=== PATIENT | male | born 1960 | race Caucasian/White ===

== ENCOUNTER 2018-05-12 18:55 | Emergency (ER) | payer MEDICAID, SELFPAY ==
[2018-05-12] VITALS (9 sets, daily range): BP systolic 109–140; BP diastolic 82–99; PULSE 89–99; RESP 18–32; TEMP 37; O2SAT 96–99
--- NOTE | 2018-05-12 19:19 | ED.CHESTPAIN ---
HPI - Chest Pain General Chief Complaint: Chest Pain Stated Complaint: Chest Pain Time Seen by Provider: 05/12/18 19:00 Source: patient and EMS Mode of arrival: EMS Limitations: no limitations History of Present Illness HPI narrative: Patient states he began to have pain across his entire chest yesterday, and the pain has persisted through the day today. Patient was given some nitroglycerin EN route, which he states improved the pain very minorly, but the pain is back to where it was before. Patient states he has had no shortness of breath, nausea, vomiting, or cough. No fever or chills. Patient is currently being treated for metastatic melanoma with brain metastases. He states he is no longer on chemotherapy or radiation, but is on Keppra and dexamethasone. Patient does note that he has had pulmonary emboli in the past associated with his cancer. He states he is not sure if this feels the same or not. Patient states he has no history of cardiac issues, the and no history of diabetes, hypertension, or hyperlipidemia. MD complaint: chest pain Onset (ago): day(s) ( One) Duration: constant ( waxes and wanes) Onset: during rest Pain location: other ( entire chest) Quality: aching Pain radiation: none Relieving factors: nothing Exacerbating factors: nothing Context: history of DVT/PE and other ( no recent illness or new medications. No trauma or injury.) Associated symptoms: other ( No leg swelling. No palpitations.) Treatments prior to arrival chest pain: nitroglycerin Related Data Allergies Allergy/AdvReac Type Severity Reaction Status Date / Time chlorhexidine Allergy Verified 05/12/18 20:35 Review of Systems Review of Systems All systems reviewed & are unremarkable except as noted in HPI and below Constitutional Denies chills, Denies fever(s), Denies lethargy and Denies weakness Eyes Denies change in vision, Denies eye discharge, Denies irritation and Denies loss of vision ENT Ears, Nose, Mouth, and Throat: Denies change in voice, Denies neck pain and Denies sore throat Cardiovascular Reports chest pain, Denies irregular heart rhythm, Denies lightheadedness, Denies palpitations, Denies dyspnea, Denies dyspnea on exertion and Denies orthopnea Respiratory Denies cough, Denies dyspnea, Denies dyspnea on exertion and Denies wheezing Gastrointestinal Gastrointestinal: Denies abdominal pain, Denies change in bowel habits, Denies diarrhea, Denies nausea and Denies vomiting Genitourinary Denies hematuria, Denies flank pain, Denies urinary incontinence and Denies urinary urgency Musculoskeletal Denies neck pain Integumentary/Breasts Denies pruritus, Denies erythema, Denies rash and Denies wounds Neurologic Denies confusion, Denies loss of vision and Denies weakness Psychiatric Denies anxiety, Denies confusion, Denies depression, Denies homicidal ideation and Denies suicidal ideation Endocrine Denies palpitations Hematologic/Lymphatic Denies easy bruising Allergic/Immunologic Denies wheezing [facility] Social History Smoking Status: Never smoker Exam Initial Vital Signs Initial Vital Signs: Vital Signs Temperature 98.6 F 05/12/18 19:05 Pulse Rate 92 H 05/12/18 19:05 Respiratory Rate 32 H 05/12/18 19:05 Blood Pressure 122/86 05/12/18 19:05 Pulse Oximetry 99 05/12/18 19:05 Const General: cooperative and well developed Nutritional Appearance: well nourished Orientation: alert, awake, oriented x3 and not confused [facility] Head: normocephalic and atraumatic Ears: external ears normal Nose: external nose normal and No nasal discharge Face and sinus: face symmetric and No dry mucous membranes Mouth: oral mucosae normal and moist mucous membranes Eyes General: appearance normal, both eyes and all related structures Eyelids: eyelids normal Conjunctivae: conjunctivae normal Sclera: sclerae normal Pupils: PERRL EOM: EOM intact bilaterally Neck Neck: normal visual inspection, trachea midline, No lymphadenopathy, No midline deformity and No JVD Lymphatic: No lymphedema Chest Chest: normal inspection of the chest Resp Effort & Inspection: normal respiratory effort, able to speak in complete sentences, no respiratory distress and no use of accessory muscles Auscultation: clear to auscultation bilaterally, no rales, no rhonchi and no wheezes Cardio Rate: regular rate Rhythm: regular rhythm Heart Sounds: no click, no gallops, no murmurs and no rubs Pulses: normal peripheral pulses GI Inspection: non-distended Palpation: soft, no hepatosplenomegaly, No guarding, No pulsatile mass and No tender Auscultation: normal bowel sounds Back/Spine/Pelvis Back: No CVA tenderness Cervical Spine: cervical ROM normal and No pain with cervical ROM Thoracic/Lumbar Spine: thoracic and lumbar spine normal to inspection Skin General: no rashes or lesions noted, No jaundice and No petechiae Neuro General: alert, oriented x3, gait normal and no focal motor deficits Speech: speech normal Extrem General: full ROM, no clubbing, cyanosis or edema, no pedal edema and no calf tenderness Psych Appearance: well kempt Mental Status: mental status grossly normal Attitude: cooperative Thought Content: normal and suicidality Judgment: judgment good Course Hospital Course: Patient felt much better after symptomatic treatment. Extensive workup, including labs, EKG, chest x-ray, and CTA of the chest were all unremarkable. I did speak with the patient and the family regarding this, and I felt patient was stable for discharge home. Patient and family were in agreement with this plan. We have discussed a plan for home care, as well as the usual indications for return. Patient and family expressed understanding. Orders Ordered: Discontinued Medications Aspirin (Aspirin) 325 mg PO NOW ONE Stop: 05/12/18 19:25 Last Admin: 05/12/18 19:36 Dose: 325 mg Hydromorphone HCl (Dilaudid) 2 mg IV NOW ONE Stop: 05/12/18 20:34 Last Admin: 05/12/18 20:42 Dose: 2 mg Sodium Chloride (Normal Saline 0.9%) 1,000 mls @ 1,000 mls/hr IV BOLUS ONE Stop: 05/12/18 20:17 Last Infusion: 05/13/18 05:34 Dose: 0 mls/hr Admin: 05/12/18 19:27 Dose: 1,000 mls/hr MDM - Chest Pain Medical Records Data Attestation: I reviewed the patient's medical records. Lab Data Attestation: I reviewed the patient's lab results. Result diagrams: 05/12/18 19:24 05/12/18 19:24 Lab Results 05/12/18 05/12/18 05/12/18 Range/Units 19:24 19:24 19:24 WBC 8.1 (4.5-11.0) X10^3/uL RBC 4.33 L (4.5-5.9) X10^6/uL Hgb 13.0 L (13.5-17.5) g/dL Hct 37.9 L (41-53) % MCV 87.5 (80-100) fL MCH 30.0 (26-34) PG MCHC 34.3 (30-36) % RDW 17.2 H (11.6-14.8) % Plt Count 309 (150-400) X10^3/uL Neut % (Auto) 65.8 (50-75) % Lymph % (Auto) 25.5 (25-40) % [place] % (Auto) 7.4 (3-14) % Eos % (Auto) 0.8 L (2-4) % Baso % (Auto) 0.5 (0-2) % Neut # (Auto) 5400 (1541-4196) /uL D-Dimer 780 H (<230) ng/mL Sodium 142 (137-145) mmol/L Potassium 3.9 (3.4-5.1) mmol/L Chloride 106 (98-107) mmol/L Carbon Dioxide 24 (22-32) mmol/L BUN 8 L (9-20) mg/dL Creatinine 1.00 (0.66-1.25) mg/dL Estimated GFR > 60.0 (>60) mL/min BUN/Creatinine Ratio 8.0 (6-22) Glucose 97 (70-100) mg/dL Calcium 9.9 (8.4-10.2) mg/dL Total Bilirubin 0.7 (0.2-1.3) mg/dL AST 34 (17-59) IU/L ALT 73 H (21-72) IU/L Alkaline Phosphatase 68 (38-126) U/L Total Creatine Kinase 20 L (55-170) U/L CK-MB (CK-2) TNP Troponin I < 0.012 (0.01-0.034) ng/mL Total Protein 7.3 (6.3-8.2) g/dL Albumin 4.1 (3.5-5.0) g/dL Globulin 3.2 (1.7-4.1) g/dL Albumin/Globulin Ratio 1.3 (1.0-2.8) Imaging Data Chest x-ray: Attestation: I personally reviewed and interpreted this imaging study as follows: My impression: Negative Radiologist's impression: PROCEDURE: XR CHEST 1V INDICATIONS: chest pain TECHNIQUE: One view of the chest was acquired. COMPARISON: [facility], CHEST 2 VIEW, 02/16/2010, 9:36. FINDINGS: Surgical changes and devices: None. Lungs and pleura: Right basilar opacity may be pneumonia or atelectasis. No pleural effusions or pneumothorax. Mediastinum: Mediastinal contours appear normal. Heart size is normal. Bones and chest wall: No suspicious bony lesions. Overlying soft tissues appear unremarkable. IMPRESSION: Right basilar pneumonia or atelectasis. Recommend followup chest x-ray to resolution. Dictated by: Lencho Daigle M.D. on 05/12/2018 at 20:05 Approved by: Lencho Daigle M.D. on 05/12/2018 at 20:05 CT scan - chest: Radiologist's impression: PROCEDURE: CT ANGIO CHEST INDICATIONS: CP, elevated d-dimer, cancer TECHNIQUE: After the administration of intravenous contrast, 2 mm thick sections acquired from the pulmonary apices to the posterior costophrenic angles. 3-dimensional maximum intensity projection (MIP) coronal and sagittal reformats were then acquired through the thorax. For radiation dose reduction, the following was used: automated exposure control, adjustment of mA and/or kV according to patient size. COMPARISON: [facility], CR, CHEST 2 VIEW, 02/16/2010, 9:36. [facility], CR, XR CHEST 1V, 05/12/2018, 19:22. FINDINGS: Image quality: Excellent. Pulmonary arteries: Pulmonary arteries are normal in size, and demonstrate no intraluminal filling defects to suggest central pulmonary embolism. Lungs and pleura: Multiple bilateral pulmonary nodules are noted. Largest right lung nodules in the right lower lobe and measures 1.9 cm in diameter. The largest left lung nodule is in the left lower lobe measures 1.8 cm in maximum diameter. Lung nodules are highly suspicious for metastatic disease. Patchy consolidation noted in the right lung base which could represent post obstructive atelectasis, aspiration or pneumonia. Trace left sided pleural effusion is noted. No pleural effusions or pneumothorax. Central and peripheral airways are patent. Mediastinum: Heart size is normal, without pericardial effusion. Atherosclerotic calcifications noted in the left coronary vasculature. Enlarged bilateral hilar lymph nodes are noted. Largest right hilar lymph node measures 3.1 cm short axis. Largest left hilar lymph node measures 2.3 cm in the short axis. Thoracic aorta is normal in caliber and enhancement. Esophagus is normal in caliber. Small hiatal hernia. Bones and chest wall: No suspicious bony lesions. Ribs and thoracic spine appear intact throughout. Spine degenerative disc disease and facet arthropathy. Thyroid gland is within normal limits. No axillary or supraclavicular adenopathy. Abdomen: Diffuse fatty infiltration of the visualized liver. Visualized upper abdominal solid organs otherwise appear normal in the early arterial phase of enhancement. IMPRESSION: 1. No pulmonary embolus. 2. Bilateral pulmonary nodules highly suspicious for metastatic disease. 3. Bilateral enlarged hilar lymph nodes highly suspicious for metastatic lymphadenopathy. 4. Consolidation in the right lung base compatible with atelectasis, aspiration or pneumonia. 5. Left coronary vascular atherosclerosis. 6. Hepatic steatosis. Dictated by: Luz Trinh MD, PhD on 05/13/2018 at 8:12 Approved by: Luz Trinh MD, PhD on 05/13/2018 at 8:20 ECG Data Attestation: I personally reviewed and interpreted this ECG as follows: (See below) Interpretation: A 12 lead EKG performed on May 16, 2018 at 6:59 p.m., as follows: A regular ventricular rhythm with a rate of 96 beats per minute NC interval 138 milliseconds QRS duration 102 milliseconds QTC interval 376 millisecond Normal axis Interpretation: Normal sinus rhythm, possible left atrial enlargement, nonspecific T-wave abnormality; borderline EKG Interpreted by ED MD Discharge Plan Departure Patient Disposition: Home Clinical Impression: Atypical chest pain Discharge Date/Time: 05/13/18 01:00 Interventions: ED Discharge Assessment Last Done: 05/13/18 01:00 Instructions: DI for Chest Pain Activity Restrictions/Additional Instructions: Your tests look good. There is no sign of a blood clot in your lungs, and your symptoms are not consistent with pneumonia. There is also no sign of a heart attack. At this point, there is no evidence of an emergent cause of your pain. Please take your home medication as usual, and follow up with your primary care physician, as needed.
[2018-05-12] MEDS: SODIUM CHLORIDE 0.9% 1,000 ML 1000 ML IV (19:27)
[2018-05-12 19:34] LABS: Add Manual Diff / Slide Review NO; Basophils Percent Auto 0.5 % (0-2); Eosinophils Percent Auto 0.8 % (2-4); Hematocrit 37.9 % (41-53); Lymphocytes Percent Auto 25.5 % (25-40); Mean Corpuscular HGB Conc 34.3 % (30-36); Mean Corpuscular Volume 87.5 fL (80-100); Monocytes Percent Auto 7.4 % (3-14); Neutrophils Absolute Auto 5400 /uL (3000-5900); Neutrophils Percent Auto 65.8 % (50-75); Platelet Count 309 X10^3/uL (150-400); Red Blood Cell Count 4.33 X10^6/uL (4.5-5.9); Red Cell Distribution Width 17.2 % (11.6-14.8); White Blood Cell Count 8.1 X10^3/uL (4.5-11.0)
[2018-05-12] MEDS: ASPIRIN 325 MG TABLET PO (19:36)
[2018-05-12 19:42] LABS: D Dimer 780 ng/mL (<230)
[2018-05-12 19:49] LABS: Alanine Aminotransferase 73 IU/L (21-72); Albumin 4.1 g/dL (3.5-5.0); Albumin Globulin Ratio 1.3 (1.0-2.8); Alkaline Phosphatase 68 U/L (38-126); Aspartate Aminotransferase 34 IU/L (17-59); Bilirubin Total 0.7 mg/dL (0.2-1.3); Blood Urea Nitrogen 8 mg/dL (9-20); Calcium 9.9 mg/dL (8.4-10.2); Carbon Dioxide 24 mmol/L (22-32); Chloride 106 mmol/L (98-107); Creatine Kinase 20 U/L (55-170); Estimated Glomerular Filt Rate > 60.0 mL/min (>60); Globulin 3.2 g/dL (1.7-4.1); Glucose 97 mg/dL (70-100); HEMOLYSIS < 15 (0-50); Potassium 3.9 mmol/L (3.4-5.1); Sodium 142 mmol/L (137-145); Total Protein 7.3 g/dL (6.3-8.2)
[2018-05-12 20:03] LABS: Troponin I < 0.012 ng/mL (0.01-0.034)
[2018-05-12] MEDS: HYDROMORPHONE 1 MG INJ 2 MG IV (20:42)
--- NOTE | 2018-05-12 21:41 | DI.CT.S_ITS ---
PROCEDURE: CT ANGIO CHEST INDICATIONS: CP, elevated d-dimer, cancer TECHNIQUE: After the administration of intravenous contrast, 2 mm thick sections acquired from the pulmonary apices to the posterior costophrenic angles. 3-dimensional maximum intensity projection (MIP) coronal and sagittal reformats were then acquired through the thorax. For radiation dose reduction, the following was used: automated exposure control, adjustment of mA and/or kV according to patient size. COMPARISON: [facility], , CHEST 2 VIEW, 02/16/2010, 9:36. [facility], , XR CHEST 1V, 05/12/2018, 19:22. FINDINGS: Image quality: Excellent. Pulmonary arteries: Pulmonary arteries are normal in size, and demonstrate no intraluminal filling defects to suggest central pulmonary embolism. Lungs and pleura: Multiple bilateral pulmonary nodules are noted. Largest right lung nodules in the right lower lobe and measures 1.9 cm in diameter. The largest left lung nodule is in the left lower lobe measures 1.8 cm in maximum diameter. Lung nodules are highly suspicious for metastatic disease. Patchy consolidation noted in the right lung base which could represent post obstructive atelectasis, aspiration or pneumonia. Trace left sided pleural effusion is noted. No pleural effusions or pneumothorax. Central and peripheral airways are patent. Mediastinum: Heart size is normal, without pericardial effusion. Atherosclerotic calcifications noted in the left coronary vasculature. Enlarged bilateral hilar lymph nodes are noted. Largest right hilar lymph node measures 3.1 cm short axis. Largest left hilar lymph node measures 2.3 cm in the short axis. Thoracic aorta is normal in caliber and enhancement. Esophagus is normal in caliber. Small hiatal hernia. Bones and chest wall: No suspicious bony lesions. Ribs and thoracic spine appear intact throughout. Spine degenerative disc disease and facet arthropathy. Thyroid gland is within normal limits. No axillary or supraclavicular adenopathy. Abdomen: Diffuse fatty infiltration of the visualized liver. Visualized upper abdominal solid organs otherwise appear normal in the early arterial phase of enhancement. IMPRESSION: 1. No pulmonary embolus. 2. Bilateral pulmonary nodules highly suspicious for metastatic disease. 3. Bilateral enlarged hilar lymph nodes highly suspicious for metastatic lymphadenopathy. 4. Consolidation in the right lung base compatible with atelectasis, aspiration or pneumonia. 5. Left coronary vascular atherosclerosis. 6. Hepatic steatosis. Dictated by: Luz Trinh MD, PhD on 05/13/2018 at 8:12 Approved by: Luz Trinh MD, PhD on 05/13/2018 at 8:20
[2018-05-13] VITALS: BP 146/94; PULSE 95; RESP 25; O2SAT 96
== END 2018-05-13 01:00 | disposition home or self-care (01) ==
PROVIDERS: Emergency Provider Emergency Medicine
DX: R07.89 Other chest pain (principal)
CPT/HCPCS: 36415; 71045; 71275; 80053; 82550; 84484; 85025; 85379; 93005; 93010; 96361; 96374; 99283; 99285; J1170; Q9967